=== PATIENT | female | born 1955 | race Hispanic/Latino ===

== ENCOUNTER 2021-11-03 05:30 | Observation (INO) | payer OTHER ==
[2021-11-02 11:09] LABS: CREATININE 0.6 mg/dL (0.5-1.5); POTASSIUM 4.2 mmol/L (3.5-5.1)
[2021-11-02 11:13] LABS: BASOPHILS % (AUTO) 0.3 % (0.0-5.0); EOSINOPHILS % (AUTO) 0.4 % (0.0-8.0); HEMATOCRIT 41.3 % (36-48); LYMPHOCYTES % (AUTO) 13.9 % (21.0-51.0); MEAN CORPUSCULAR HEMOGLOBIN 30.4 pg (27.0-33.0); MEAN CORPUSCULAR HGB CONC 33.9 g/dL (32.0-36.0); MEAN CORPUSCULAR VOLUME 89.6 fL (79-99); MONOCYTES % (AUTO) 4.6 % (3.0-13.0); NEUTROPHILS % (AUTO) 80.4 % (40.0-77.0); PLATELET COUNT (AUTO) 175 K/uL (130-400); RED BLOOD CELL COUNT(AUTO) 4.61 MIL/uL (4.00-5.50); RED CELL DISTRIBUTION WIDTH 12.4 % (11.0-15.5); WHITE BLOOD COUNT (AUTO) 7.3 K/uL (4.8-10.8)
[2021-11-02 11:17] LABS: INR 0.95 (0.85-1.15); PROTHROMBIN TIME 10.4 SEC (9.6-11.6)
[2021-11-02 11:19] LABS: PARTIAL THROMBOPLASTIN TIME 24.4 SEC (26.3-35.5)
[2021-11-02 11:31] VITALS: BP 178/82
[2021-11-02 12:03] LABS: APPEARANCE,URINE CLEAR (CLEAR); BILIRUBIN,URINE NEGATIVE (NEGATIVE); COLOR,URINE YELLOW (YELLOW); GLUCOSE, URINE (UA) NEGATIVE (NEGATIVE); KETONES,URINE NEGATIVE (NEGATIVE); LEUKOCYTE ESTERASE ,URINE NEGATIVE (NEGATIVE); NITRATE,URINE NEGATIVE (NEGATIVE); OCCULT BLOOD,URINE NEGATIVE (NEGATIVE); PROTEIN,URINE NEGATIVE (NEGATIVE); UROBILINOGEN,URINE 0.2 mg/dL (0.2-1.0)
[~2021-11-03] VITALS: Ht 162.6 cm; Wt 69.6 kg
[2021-11-03] VITALS (21 sets, daily range): BP systolic 137–173; BP diastolic 67–97
[~2021-11-03 05:30] MED LIST: ATOR20TA65 PO; GLIM2TAB30 PO; METF-444 PO; NITR100C9 PO
[2021-11-03] MEDS ORDERED: 0.9%NACL 1000ML 1,000 ML IV ONE (05:47)
[2021-11-03] MEDS ORDERED: FAMOTIDINE 20MG VIAL IV ONE (07:06)
[2021-11-03] MEDS ORDERED: HYDROMORPHONE 1 MG INJ ONE ×2 (07:07→09:48)
[2021-11-03] MEDS ORDERED: MIDAZOLAM HCL 1 MG/ML 2ML VIAL ONE (07:07)
[2021-11-03] MEDS ORDERED: LIDOCAINE PF 100MG/5ML (2%) SYRINGE 5ML ONE (07:15)
[2021-11-03] MEDS ORDERED: GLYCOPYRROLATE 1 MG/5 ML SYRINGE ONE (07:15)
[2021-11-03] MEDS ORDERED: ROCURONIUM 10MG/1ML SYR 10 MG/ML ML ONE (07:16)
[2021-11-03] MEDS ORDERED: FENTANYL CITRATE PF 50 MCG/1 ML 2ML VIAL ONE (07:16)
[2021-11-03] MEDS ORDERED: PROPOFOL 10 MG/ML 20ML VIAL IV ONE (07:16)
[2021-11-03] MEDS: CEFAZOLIN SODIUM 1 GM VIAL IVP SCH ×2 (07:28→13:30)
[2021-11-03] MEDS ORDERED: ONDANSETRON 4MG INJ ONE ×2 (07:58→09:47)
[2021-11-03] MEDS ORDERED: NEOSTIGMINE 5MG/5ML SYR IV ONE (09:19)
[2021-11-03] MEDS ORDERED: IBUPROFEN 600 MG TABLET PO PRN (11:30)
[2021-11-03] MEDS ORDERED: ONDANSETRON 4MG INJ IVP PRN (11:30)
[2021-11-03] MEDS: INSULIN HUMULIN R 100 UNIT/ML 3ML SQ SCH ×3 (11:30→20:55)
[2021-11-03] MEDS ORDERED: PROMETHAZINE HCL 25 MG/ML 1ML AMPULE IM PRN ×2 (11:30)
[2021-11-03] MEDS ORDERED: MEPERIDINE-PF 75 MG/ML SYG IM PRN (11:30)
[2021-11-03] MEDS ORDERED: BISACODYL 10 MG SUPP.RECT RC PRN (11:30)
[2021-11-03] MEDS: ACETAMINOPHEN WITH CODEINE 1 TAB TAB PO PRN (18:14)
[2021-11-03] MEDS: LACTATED RINGERS 1000ML 1,000 ML IV SCH ×2 (18:16→20:57)
[2021-11-04] MEDS: ACETAMINOPHEN WITH CODEINE 1 TAB TAB PO PRN (02:29)
[2021-11-04 02:30] VITALS: BP 157/77
[2021-11-04] MEDS: LACTATED RINGERS 1000ML 1,000 ML IV SCH (04:57)
[2021-11-04 05:11] LABS: HEMATOCRIT 31.1 % (36-48); MEAN CORPUSCULAR HEMOGLOBIN 30.7 pg (27.0-33.0); MEAN CORPUSCULAR HGB CONC 35.4 g/dL (32.0-36.0); MEAN CORPUSCULAR VOLUME 86.9 fL (79-99); RED BLOOD CELL COUNT(AUTO) 3.58 MIL/uL (4.00-5.50); RED CELL DISTRIBUTION WIDTH 12.4 % (11.0-15.5); WHITE BLOOD COUNT (AUTO) 9.5 K/uL (4.8-10.8)
[2021-11-04] MEDS: INSULIN HUMULIN R 100 UNIT/ML 3ML SQ SCH ×4 (06:03→21:00)
[2021-11-04 07:24] VITALS: BP 164/87
[2021-11-04] MEDS: SIMETHICONE 80 MG TAB.CHEW PO PRN ×2 (08:37→21:05)
[2021-11-04] MEDS: DOCUSATE SODIUM 100 MG CAP PO PRN ×2 (08:37→21:06)
[2021-11-04] MEDS: NITROFURANTOIN MONOHYD/M-CRYST 100 MG CAPSULE PO SCH ×2 (08:37→21:05)
[2021-11-04] MEDS: IBUPROFEN 800 MG TAB PO PRN ×2 (08:58→17:59)
[2021-11-04] MEDS ORDERED: HYDROCODONE/ACETAMINOPHEN 5/325 MG TAB PO PRN (09:00)
[2021-11-04] MEDS ORDERED: ACETAMINOPHEN WITH CODEINE 1 TAB TAB PO PRN (09:00)
[2021-11-04 12:26] VITALS: BP 171/90
[2021-11-04 16:14] VITALS: BP 151/79
[2021-11-04 19:49] VITALS: BP 163/90
[2021-11-04 22:40] VITALS: BP 141/76
[2021-11-05 03:15] VITALS: BP 134/76
[2021-11-05] MEDS: INSULIN HUMULIN R 100 UNIT/ML 3ML SQ SCH ×2 (07:22→11:30)
[2021-11-05 07:41] VITALS: BP 166/86
[2021-11-05] MEDS: SIMETHICONE 80 MG TAB.CHEW PO PRN (08:39)
[2021-11-05] MEDS: NITROFURANTOIN MONOHYD/M-CRYST 100 MG CAPSULE PO SCH (08:39)
[2021-11-05] MEDS: DOCUSATE SODIUM 100 MG CAP PO PRN (08:39)
[2021-11-05] MEDS: IBUPROFEN 800 MG TAB PO PRN (08:40)
[2021-11-05] MEDS ORDERED: ACET-2079 PO (12:15)
[2021-11-05] MEDS ORDERED: NITR100C4 PO (12:15)
[2021-11-05 12:20] VITALS: BP 151/80
== END 2021-11-05 13:30 | disposition home or self-care (01) ==
LOC: DAH 05:30 → WSH 05:31 → DAH 05:31 → WSH 10:45
PROVIDERS: ADMIT Obstetrics & Gynecology; ATTEND Obstetrics & Gynecology
DX: N81.2 Incomplete uterovaginal prolapse (principal); Z20.822 Contact with and (suspected) exposure to COVID-19; N39.3 Stress incontinence (female) (male); K46.9 Unspecified abdominal hernia without obstruction or gangrene; E11.9 Type 2 diabetes mellitus without complications; E78.00 Pure hypercholesterolemia, unspecified; Z79.899 Other long term (current) drug therapy
CPT/HCPCS: 80048; 85025; 85610; 85730; 86850; 86900; 86901; 87426; 81003; 36415 ×2; 93005; 51040; 57288; 58263; 57260; 96372; 82948 ×11; 85027; A6260; G0378 ×50; A4663; J7030 ×2; J7120; A4606; A4344; J3490 ×2; J3010; J0690; J1170 ×2; J2710; J2550; J2001; J2250; J2704; J2405 ×2; J2175; C1771; G0168; A4223; A4222; A4221; A4600; A4510; J1815; G0379